=== PATIENT | male | born 1960 | race Caucasian/White ===

== ENCOUNTER → 2017-09-08 10:51 | Outpatient (CLI) | payer OTHER, SELFPAY ==
[2017-09-08 12:45] LABS: Anion Gap 10 (5-15); BUN 14 mg/dL (7-18); BUN/Creat Ratio 15.3 RATIO (10-20); Calcium,Total 9.3 mg/dL (8.5-10.1); Chloride 106 mmol/L (98-107); Cholesterol 236 mg/dL (200); Creatinine, Serum 0.92 mg/dL (0.70-1.30); EST Glomerular Filtration Rate 90 mL/min (>60); Est Glom Filt Rate - Afr Amer 109 mL/min (>60); Glucose 90 mg/dL (74-106); High Density Lipoprotein 50 mg/dL; Potassium 3.5 mmol/L (3.5-5.1); Sodium Level 140 mmol/L (136-145); Triglycerides 201 mg/dL; Very Low Density Lipoprotein 40 mg/dL (5-40)
== END ==
PROVIDERS: Family Provider Family Medicine; PCP Family Medicine; Visit Provider Family Medicine
DX: I10 Essential (primary) hypertension (principal)
CPT/HCPCS: 36415; 80048; 80061

== ENCOUNTER → 2018-08-07 | Outpatient (CLI) | payer OTHER, SELFPAY ==
[2018-08-07 10:44] LABS: Anion Gap 10 (5-15); BUN 16 mg/dL (7-18); BUN/Creat Ratio 15.4 RATIO (10-20); Calcium,Total 8.9 mg/dL (8.5-10.1); Chloride 105 mmol/L (98-107); Creatinine, Serum 1.04 mg/dL (0.70-1.30); EST Glomerular Filtration Rate 78 mL/min (>60); Est Glom Filt Rate - Afr Amer 94 mL/min (>60); Glucose 126 mg/dL (74-106); PSA,Total - Annual Screen 0.84 ng/mL (0.00-4.00); Potassium 3.6 mmol/L (3.5-5.1); Sodium Level 141 mmol/L (136-145)
== END | disposition home or self-care (01) ==
LOC: MTLAB 08:04
PROVIDERS: Family Provider Family Medicine; PCP Family Medicine; Referring Provider Family Medicine; Visit Provider Family Medicine
DX: R30.0 Dysuria (principal); Z12.5 Encounter for screening for malignant neoplasm of prostate
CPT/HCPCS: 36415; 80048; 84153; G0103

== ENCOUNTER → 2019-06-03 | Outpatient (CLI) | payer OTHER, SELFPAY ==
[2019-06-03 13:34] LABS: Anion Gap 8 (5-15); BUN 10 mg/dL (7-18); BUN/Creat Ratio 10.7 RATIO (10-20); Calcium,Total 9.2 mg/dL (8.5-10.1); Chloride 110 mmol/L (98-107); Cholesterol 215 mg/dL (200); Creatinine, Serum 0.94 mg/dL (0.70-1.30); EST Glomerular Filtration Rate 88 mL/min (>60); Est Glom Filt Rate - Afr Amer 106 mL/min (>60); Glucose 98 mg/dL (74-106); High Density Lipoprotein 40 mg/dL; Potassium 3.7 mmol/L (3.5-5.1); Sodium Level 141 mmol/L (136-145); Triglycerides 297 mg/dL; Very Low Density Lipoprotein 59 mg/dL (5-40)
== END | disposition home or self-care (01) ==
LOC: MFPLAB 10:08
PROVIDERS: PCP Family Medicine; Referring Provider Family Medicine; Visit Provider Family Medicine
DX: I10 Essential (primary) hypertension (principal)
CPT/HCPCS: 36415; 80048; 80061

== ENCOUNTER → 2020-07-06 11:09 | Outpatient (CLI) | payer OTHER, SELFPAY ==
[2020-07-06 13:27] LABS: Anion Gap 7 (5-15); BUN 15 mg/dL (7-18); BUN/Creat Ratio 17.4 RATIO (10-20); Chloride 105 mmol/L (98-107); Creatinine, Serum 0.86 mg/dL (0.70-1.30); EST Glomerular Filtration Rate 96 mL/min (>60); Est Glom Filt Rate - Afr Amer 116 mL/min (>60); Glucose 93 mg/dL (74-106); PSA,Total - Annual Screen 0.84 ng/mL (0.00-4.00); Potassium 3.2 mmol/L (3.5-5.1); Sodium Level 139 mmol/L (136-145)
== END ==
PROVIDERS: PCP Family Medicine; Visit Provider Family Medicine
DX: Z00.00 Encounter for general adult medical examination without abnormal findings (principal); I10 Essential (primary) hypertension; Z12.5 Encounter for screening for malignant neoplasm of prostate
CPT/HCPCS: 36415; 80048; 84153; G0103

== ENCOUNTER → 2020-08-13 11:31 | Outpatient (CLI) | payer OTHER, SELFPAY ==
[2020-08-13 15:41] LABS: Anion Gap 6 (5-15); BUN 15 mg/dL (7-18); BUN/Creat Ratio 16.3 RATIO (10-20); Calcium,Total 9.1 mg/dL (8.5-10.1); Chloride 107 mmol/L (98-107); Creatinine, Serum 0.92 mg/dL (0.70-1.30); EST Glomerular Filtration Rate 89 mL/min (>60); Est Glom Filt Rate - Afr Amer 108 mL/min (>60); Glucose 95 mg/dL (74-106); Potassium 3.7 mmol/L (3.5-5.1); Sodium Level 137 mmol/L (136-145)
== END ==
PROVIDERS: PCP Family Medicine; Referring Provider Family Medicine; Visit Provider Family Medicine
DX: E87.6 Hypokalemia (principal)
CPT/HCPCS: 36415; 80048

== ENCOUNTER → 2020-12-28 09:55 | Outpatient (CLI) | payer OTHER, SELFPAY ==
[2020-12-28 12:22] LABS: Anion Gap 9 (5-15); BUN 16 mg/dL (7-18); BUN/Creat Ratio 16.4 RATIO (10-20); Calcium,Total 9.2 mg/dL (8.5-10.1); Chloride 105 mmol/L (98-107); Creatinine, Serum 0.98 mg/dL (0.70-1.30); EST Glomerular Filtration Rate 83 mL/min (>60); Est Glom Filt Rate - Afr Amer 100 mL/min (>60); Glucose 110 mg/dL (74-106); Potassium 3.9 mmol/L (3.5-5.1); Sodium Level 139 mmol/L (136-145)
== END ==
PROVIDERS: PCP Family Medicine; Visit Provider Family Medicine
DX: I10 Essential (primary) hypertension (principal)
CPT/HCPCS: 36415; 80048

== ENCOUNTER 2021-07-13 16:08 | Outpatient (CLI) | payer OTHER, SELFPAY ==
[2021-07-13 18:21] LABS: AST(SGOT) 23 U/L (15-37); Alanine Aminotransfer ALT/SGPT 40 U/L (16-61); Anion Gap 8 (5-15); BUN 15 mg/dL (7-18); BUN/Creat Ratio 17.2 RATIO (10-20); Calcium,Total 8.7 mg/dL (8.5-10.1); Chloride 105 mmol/L (98-107); Cholesterol 243 mg/dL (200); Creatinine, Serum 0.87 mg/dL (0.70-1.30); EST Glomerular Filtration Rate 94 mL/min (>60); Est Glom Filt Rate - Afr Amer 114 mL/min (>60); Glucose 104 mg/dL (74-106); High Density Lipoprotein 35 mg/dL; PSA,Total - Annual Screen 0.81 ng/mL (0.00-4.00); Potassium 3.5 mmol/L (3.5-5.1); Sodium Level 139 mmol/L (136-145); Triglycerides 629 mg/dL
[2021-07-13 18:45] LABS: Microalbumin,Random Urine 27.7 mg/L (NO RANGE EST.)
== END 2021-07-13 23:59 | disposition home or self-care (01) ==
LOC: MFPLAB 16:12
PROVIDERS: PCP Family Medicine; Referring Provider Family Medicine; Visit Provider Family Medicine
DX: Z00.00 Encounter for general adult medical examination without abnormal findings (principal); E78.00 Pure hypercholesterolemia, unspecified; I10 Essential (primary) hypertension; Z12.5 Encounter for screening for malignant neoplasm of prostate
CPT/HCPCS: 36415; 80048; 80061; 82043; 82570; 84153; 84450; 84460; G0103

== ENCOUNTER → 2022-07-27 | Outpatient (CLI) | payer BC, OTHER, SELFPAY ==
[2022-07-27 12:39] LABS: Microalbumin,Random Urine 6.8 mg/L (NO RANGE EST.); Microalbumin:Creatinine Ratio 7.2 mg/g CRE (<30 mg/g CRE)
[2022-07-27 12:50] LABS: AST(SGOT) 24 U/L (15-37); Alanine Aminotransfer ALT/SGPT 40 U/L (16-61); Anion Gap 9 (5-15); BUN 12 mg/dL (7-18); BUN/Creat Ratio 13.7 RATIO (10-20); Calcium,Total 9.4 mg/dL (8.5-10.1); Chloride 105 mmol/L (98-107); Cholesterol 252 mg/dL (200); Creatinine, Serum 0.88 mg/dL (0.70-1.30); EST Glomerular Filtration Rate 93 mL/min (>60); Est Glom Filt Rate - Afr Amer 113 mL/min (>60); Glucose 100 mg/dL (74-106); High Density Lipoprotein 43 mg/dL; Potassium 3.9 mmol/L (3.5-5.1); Sodium Level 140 mmol/L (136-145); Triglycerides 184 mg/dL; Very Low Density Lipoprotein 37 mg/dL (5-40)
== END | disposition home or self-care (01) ==
PROVIDERS: PCP Family Medicine; Referring Provider Family Medicine; Visit Provider Family Medicine
DX: I10 Essential (primary) hypertension (principal); E78.00 Pure hypercholesterolemia, unspecified
CPT/HCPCS: 36415; 80048; 80061; 82043; 82570; 84450; 84460

== ENCOUNTER → 2023-05-29 | Outpatient (CLI) | payer BC, OTHER, SELFPAY ==
--- OUTSIDE RECORDS SUMMARY | 2023-05-29 08:29 | XMS RPT_ITS | CCD ---
Author Name Unknown Address [id number] [place] [address] Organization [facility]erg[facility] Allergy Classification Reported Allergen(s) Allergy Type Date of Onset Reaction(s) Facility (1 source) Sulfonamides (Antibiotic); Translations: [SULFA (SULFONAMIDE ANTIBIOTICS)] Propensity to adverse reactions to drug (disorder) 4 [facility] (1 source) BEE STING; Translations: [BEE STING] Propensity to adverse reactions (disorder) 4 [facility] Results Test Name Value Interpretation Reference Range Facil ity Encounters Encounter Date Encounter Type Care Provider Facility Start: 05-07-2017 End: 05-07-2017 Ambulatory [facility] Summary Purpose Family History No Family History Records Found Advance Directives No Advanced Directives Records Found Additional Source Comments (unrecognized sect ion and content) No Status Records Found INFORMATION SOURCE (unrecogn ized section and content) FOR RECORDS PERTAINING TO PATIENTS WHO ARE OR HAVE BEEN ENROLLED IN A CHEMICAL DEPENDENCY/SUBSTANCEABUSE PROGRAM, SOME INFORMATION MAY BE OMITTED. This clinical summary was aggregated from multiple sources. Caution should be exercised in using it in the provision of clinical care. This summary normalizes information from multiple sources, and as a consequence, information in this document may materially change the coding, format and clinical context of patient data. In addition, data may be omitted in some cases. CLINICAL DECISIONS SHOULD BE BASED ON THE PRIMARY CLINICAL RECORDS. [employer] provides no warranty or guarantee of the accuracy or completeness of information in this document.
[2023-05-29 11:02] LABS: Protein, Urine (Random) 15.1 mg/dL (<11.9); Protein:Creat Ratio 65 mg/g CRE (0-200)
[2023-05-29 11:35] LABS: Anion Gap 6 (5-15); BUN 14 mg/dL (7-18); BUN/Creat Ratio 14.9 RATIO (10-20); Calcium,Total 8.9 mg/dL (8.5-10.1); Chloride 109 mmol/L (98-107); Creatinine, Serum 0.94 mg/dL (0.70-1.30); EST Glomerular Filtration Rate 86 mL/min (>60); Est Glom Filt Rate - Afr Amer 104 mL/min (>60); Glucose 96 mg/dL (74-106); PSA,Total - Annual Screen 0.88 ng/mL (0.00-4.00); Potassium 3.8 mmol/L (3.5-5.1); Sodium Level 140 mmol/L (136-145)
== END | disposition home or self-care (01) ==
PROVIDERS: PCP Family Medicine; Referring Provider Family Medicine; Visit Provider Family Medicine
DX: Z12.5 Encounter for screening for malignant neoplasm of prostate (principal); I10 Essential (primary) hypertension
CPT/HCPCS: 36415; 80048; 82570; 84153; 84156; G0103

== ENCOUNTER → 2024-07-29 | Outpatient (CLI) | payer MEDICARE, SELFPAY ==
[2024-07-29 09:57] LABS: Absolute Lymphocyte Count 2.42 X10^3/uL (0.83-4.51); Absolute Neutrophil Count 4.5 X10^3/uL (2.0-7.7); Basophil# 0.05 X10^3/uL; Basophil% 0.6 % (0-1); Eosinophils% 2.5 % (0-5); Hematocrit 40.9 % (40-54); Hemoglobin 14.4 g/dL (13.0-16.5); Lymphocyte # 2.42 X10^3/ul (0.83-4.51); Lymphocyte % 30.4 % (19-41); Mean Corp Hgb Conc 35.2 g/dL (32-36); Mean Corpuscular Hgb 31.7 pg (27.0-32.0); Mean Corpuscular Volume 90.1 fL (80-94); Mean Platelet Vol. 8.5 fl (6.2-12.0); Monocyte# 0.71 X10^3/uL; Monocyte% 8.9 % (0-10); NRBC Flagged by Analyzer 0 % (0-5); Neutrophil # 4.54 X10^3/uL (2.7-7.7); Neutrophil % 57.2 % (47-70); Platelet Count 378 K/mm3 (150-450); RBC Distribution Width CV 12.1 % (11.6-14.6); RBC Distribution Width SD 39.9 fl (35.1-43.9); Red Blood Count 4.54 M/mm3 (4.6-6.2)
[2024-07-29 10:26] LABS: ALB/GLOB Ratio 1.6 RATIO (0.9-2.4); AST(SGOT) 29 U/L (<=37); Alanine Aminotransfer ALT/SGPT 23 U/L (<=46); Albumin, Serum 4.2 g/dL (3.4-4.8); Alkaline Phosphatase 80 U/L (40-129); Anion Gap 11 (5-15); BUN 12 mg/dL (4-19); BUN/Creat Ratio 13.7 RATIO (10-20); Calcium,Total 9.3 mg/dL (7.6-11.0); Carbon Dioxide 22.7 mmol/L (21.0-32.0); Chloride 105 mmol/L (98-108); Cholesterol 217 mg/dL (<=200); Creatinine, Serum 0.88 mg/dL (0.70-1.20); EST Glomerular Filtration Rate 96 (>60); Globulin 2.6 g/dL (2.2-4.2); Glucose 100 mg/dL (70-99); High Density Lipoprotein 36 mg/dL; Low Density Lipoprotein Calc. 141 mg/dL; Potassium 3.8 mmol/L (3.3-5.1); Protein, Total 6.8 g/dL (5.9-8.4); Sodium Level 139 mmol/L (133-145); Total Bilirubin 0.79 mg/dL (0.00-1.30); Triglycerides 199 mg/dL; Very Low Density Lipoprotein 40 mg/dL (5-40); cholesterol:hdl ratio screen 5.96
[2024-07-29 10:27] LABS: PSA,Total - Annual Screen 1.23 ng/mL (0.02-4.00); Vitamin D,25 Hydroxy 16.9 ng/mL (30-100)
== END | disposition home or self-care (01) ==
LOC: MFPLAB 08:11
PROVIDERS: PCP Family Medicine; Referring Provider Family Medicine; Visit Provider Family Medicine
DX: I10 Essential (primary) hypertension (principal); R53.83 Other fatigue; Z91.030 Bee allergy status; Z12.5 Encounter for screening for malignant neoplasm of prostate
CPT/HCPCS: 36415; 80053; 80061; 82306; 84153; 84443; 85025; G0103